=== PATIENT | male | born 1975 | race Asian ===

== ENCOUNTER 2020-01-17 22:14 | Emergency (ER) | payer OTHER ==
[~2020-01-17] VITALS: Ht 172.7 cm; Wt 71.0 kg
[2020-01-17 22:27] VITALS: Ht 172.7 cm; Wt 71.0 kg
[2020-01-17 23:57] VITALS: BP 142/57
== END 2020-01-17 23:57 | disposition home or self-care (01) ==
LOC: ED 22:14
DX: S61.211A Laceration without foreign body of left index finger without damage to nail, initial encounter (principal); W26.9XXA Contact with unspecified sharp object(s), initial encounter; Y93.89 Activity, other specified; Y92.89 Other specified places as the place of occurrence of the external cause; Y99.8 Other external cause status
CPT/HCPCS: 90715; J2001